=== PATIENT | male | born 1995 | race Caucasian/White ===

== ENCOUNTER 2019-09-04 02:01 | Emergency (ER) | payer SELFPAY ==
[~2019-09-04] VITALS: Ht 180.3 cm; Wt 65.8 kg
--- NOTE | 2019-09-04 02:01 | NUR ---
PT BIB [facility], PREBOOK. TAKEN TO [facility] A
[2019-09-04 02:03] VITALS: BP 105/55
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
[2019-09-04 02:15] VITALS: BP 105/55
--- NOTE | 2019-09-04 02:15 | NUR ---
PATIENT BIB [place] [facility] [facility]. PATIENT EXAMINED BY DR. TORRES. PATIENT MEDICALLY CLEARED AND RELEASED IN CUSTODY IN STABLE CONDITION. ORIGINAL PRE-BOOK FORM GIVEN TO OFFICER EILEEN.
== END 2019-09-04 02:15 ==
LOC: MED 02:01
DX: F17.200 Nicotine dependence, unspecified, uncomplicated (principal); Z04.1 Encounter for examination and observation following transport accident; Z02.89 Encounter for other administrative examinations
CPT/HCPCS: 99283